=== PATIENT | male | born 1995 | race Caucasian/White ===

== ENCOUNTER 2023-04-29 14:24 | Emergency (ER) | payer BC ==
[2023-04-29] MEDS ORDERED: NA CHLORIDE 0.9% 1,000 ML ONE (15:33)
[2023-04-29 15:38] LABS: Absolute Lymphocytes (CBC) 1.3 K/uL (0.7-4.9); Hematocrit 42.4 % (39.6-49.0); Lymphocytes % 10.7 % (15.3-44.8); MCV 86.1 fL (80-100); Platelets 282 thou/uL (152-406); RBC Red Blood Cell Count 4.93 M/uL (4.33-5.43)
[2023-04-29 15:48] LABS: ALT/SGPT 55 U/L (16-61); AST/SGOT 18 U/L (15-37); Albumin 3.8 g/dL (3.4-5.0); Alkaline Phosphatase 72 U/L (45-117); BUN Blood Urea Nitrogen 13 mg/dL (7-18); Bicarbonate 25 mEq/L (21-32); Bilirubin Total 0.3 mg/dL (0.2-1.0); Glomerular Filtration Rate 76 ml/min (=/>90); Glucose Level 129 mg/dL (74-106); Potassium 3.7 mEq/L (3.5-5.1); Protein, Total 7.3 g/dL (6.4-8.2); Sodium Level 139 mEq/L (136-145); Troponin High Sensitivity 5.2 pg/mL (<58.9)
[2023-04-29 15:55] LABS: Bilirubin Direct < 0.1 mg/dL (0-0.2); Bilirubin Indirect, Calculated ND mg/dL (0.2-0.8)
--- NOTE | 2023-04-29 16:49 | RAD REPORT ---
EXAM DESCRIPTION: Naya Single View04/29/2023 2:57 pm CLINICAL HISTORY: CHEST PAIN COMPARISON: No comparisons TECHNIQUE: Portable AP view of the chest. FINDINGS: The lungs are clear. No pneumothorax or effusion. The cardiomediastinal contours are unre markable. IMPRESSION: No acute cardiopulmonary process.
--- NOTE | 2023-04-29 17:05 | ER ---
Nurse's Notes [facility] Name: Khoi Nichole Age: 28 yrs Sex: Male : 1995 Arrival Date: 04/29/2023 Time: 14:24 Bed 25 Private MD: Diagnosis: Tachycardia, unspecified Presentation: 04/29 14:25 Chief complaint: Patient states: Ate lunch at work about 10 minutes later his watch ll1 alerted he had fast HR. HR 110-150's. [place] palpitations and tingling. Chest "feels weird" but denies pain. EMS states: HR 140's upon arrival. 20 G L hand started. 250 ml NS bolus started. HR 110-120's upon arrival. Aspirin 324 MG PO given en route. Coronavirus screen: Vaccine status: Patient reports being unvaccinated. Client denies travel out of the [place] in the last 14 days. At this time, the client does not indicate any symptoms associated with coronavirus-19. Ebola Screen: Patient denies travel to an Ebola-affected area in the 21 days before illness onset. Initial Sepsis Screen: Does the patient meet any 2 criteria? HR > 90 bpm. No. Patient's initial sepsis screen is negative. Does the patient have a suspected source of infection? No. Patient's initial sepsis screen is negative. Risk Assessment: Do you want to hurt yourself or someone else? Patient reports no desire to harm self or others. Onset of symptoms was April 29, 2023. 14:25 Method Of Arrival: EMS: [facility] 14:25 Acuity: [facility] 2 ll1 Historical: - Allergies: 14:30 No Known Allergies; ll1 - PMHx: 14:30 None; ll1 - PSHx: 14:30 None; ll1 - Immunization history:: Adult Immunizations up to date. - Social history:: Smoking status: Patient denies any tobacco usage or history of. - Family history:: not pertinent. Screenin:38 [facility] ED Fall Risk Assessment (Adult) History of falling in the last 3 months, ph including since admission No falls in past 3 months (0 pts) Confusion or Disorientation No (0 pts) Intoxicated or Sedated No (0 pts) Impaired Gait No (0 pts) Mobility Assist Device Used No (0 pt) Altered Elimination No (0 pt) Score/Fall Risk Level 0 - 2 = Low Risk Oriented to surroundings, Maintained a safe environment, Provided non-skid footwear, Hourly rounding (assess needs \\T\\ fall precautionary measures) done. Abuse screen: Denies threats or abuse. Denies injuries from another. Nutritional screening: No deficits noted. Tuberculosis screening: No symptoms or risk factors identified. Assessment: 15:36 General: Appears in no apparent distress. comfortable, well groomed, Behavior is calm, ph cooperative, appropriate for age, Denies fever, feeling ill. Pain: Denies pain. Neuro: Level of Consciousness is awake, alert, obeys commands, Oriented to person, place, time, situation, Reports dizziness. Cardiovascular: Capillary refill < 3 seconds in bilateral fingers Patient's skin is warm and dry. Rhythm is sinus tachycardia. Respiratory: Airway is patent Respiratory effort is even, unlabored, Respiratory pattern is regular, symmetrical. GI: No signs and/or symptoms were reported involving the gastrointestinal system. Patient currently denies abdominal pain, diarrhea, nausea, vomiting. : No signs and/or symptoms were reported regarding the genitourinary system. Derm: Skin is pink, warm \\T\\ dry. Musculoskeletal: Circulation, motion, and sensation intact. Range of motion: intact in all extremities. Vital Signs: 14:25 BP 121 / 67; Pulse 129; Resp 18; Temp 98.6; Pulse Ox 96% on R/A; Weight 117.93 kg; ll1 Height 6 ft. 3 in. ; Pain 0/10; 15:38 BP 165 / 96; Pulse 109; Resp 18; Pulse Ox 95% on R/A; ph 17:23 BP 145 / 84; Pulse 100; Resp 18; Temp 97.2; Pulse Ox 100% on R/A; ph 14:25 Body Mass Index 32.50 (117.93 kg, 190.5 cm) ll1 14:25 Pain Scale: Adult ll1 Vitals: 15:38 Cardiac Rhythm Assessment Sinus tach. ph ED Course: 14:25 Patient arrived in ED. ll1 14:25 Abbe Mosquera MD is Attending Physician. ec2 14:30 Triage completed. ll1 14:30 Arm band placed on Patient placed in an exam room, on a stretcher. ll1 14:48 Verona Lal RN is Primary Nurse. ph 14:58 XRAY Chest (1 view) In Process Unspecified. EDMS 15:37 No provider procedures requiring assistance completed. Maintain EMS IV. Dressing ph intact. Good blood return noted. Site clean \\T\\ dry. Gauge \\T\\ site: 20G L hand. 15:38 Patient has correct armband on for positive identification. Bed in low position. Call ph light in reach. Side rails up X2. Client placed on continuous cardiac and pulse oximetry monitoring. NIBP monitoring applied. Door closed. Noise minimized. 15:43 Basic Metabolic Panel Sent. ph 15:43 LFT's Sent. ph 15:44 Magnesium Sent. ph 15:44 Troponin HS Sent. ph 15:44 TSH Sent. ph 17:24 IV discontinued, intact, bleeding controlled, No redness/swelling at site. Pressure ph dressing applied. Administered Medications: 15:41 Drug: NS 0.9% IV 1000 ml IV at 1 bolus Per protocol; 1000 mL bolus Route: IV; Rate: 1 ph bolus; Site: left hand; 17:24 Follow up: Response: No adverse reaction; IV Status: Completed infusion; IV Intake: ph 1000ml Medication: 15:38 VIS not applicable for this client. ph Intake: 17:24 IV: 1000ml; Total: 1000ml. ph Outcome: 17:05 Discharge ordered by . rt 17:24 Discharged to home ambulatory, with significant other, ph 17:24 Condition: good 17:24 Discharge instructions given to patient, Instructed on discharge instructions, follow up and referral plans. Demonstrated understanding of instructions, follow-up care, 17:30 Patient left the ED. ph Signatures: Dispatcher [employer] Verona Sharif RN RN ph Rodrigo Ibrahim RN RN ll1 Abbe Mosquera MD MD rt Gregorio Kwon MD MD ec2
--- NOTE | 2023-04-29 17:06 | EDPHYS ---
Physician Documentation [facility] Name: Khoi Nichole Age: 28 yrs Sex: Male : 1995 Arrival Date: 04/29/2023 Time: 14:24 Bed 25 Private MD: ED Physician Abbe Mosquera HPI: 04/29 16:00 This 28 yrs old Male presents to ER via EMS with complaints of Palpitations. rt 16:00 Patient presents to the ED with reports of a fast heartbeat. Patient states that his rt watch notified him that his heart rate was in the 150s. He states that he felt palpitations, somewhat dizzy at that time. Denies other acute complaints at this time, symptoms are moderate severity, no other aggravating or alleviating factors.. Historical: - Allergies: 14:30 No Known Allergies; ll1 - PMHx: 14:30 None; ll1 - PSHx: 14:30 None; ll1 - Immunization history:: Adult Immunizations up to date. - Social history:: Smoking status: Patient denies any tobacco usage or history of. - Family history:: not pertinent. ROS: 16:00 Constitutional: Negative for fever, chills, and weight loss, Respiratory: Negative for rt shortness of breath, cough, wheezing, and pleuritic chest pain, Abdomen/GI: Negative for abdominal pain, nausea, vomiting, diarrhea, and constipation, MS/Extremity: Negative for injury and deformity, Skin: Negative for injury, rash, and discoloration, Psych: Negative for depression, anxiety, suicide ideation, homicidal ideation, and hallucinations, 16:00 Cardiovascular: Positive for palpitations, Negative for chest pain, 16:00 Neuro: Positive for near syncope, Negative for syncope, Exam: 16:00 ECG was reviewed by the Attending Physician. rt Vital Signs: 14:25 BP 121 / 67; Pulse 129; Resp 18; Temp 98.6; Pulse Ox 96% on R/A; Weight 117.93 kg; ll1 Height 6 ft. 3 in. ; Pain 0/10; 15:38 BP 165 / 96; Pulse 109; Resp 18; Pulse Ox 95% on R/A; ph 17:23 BP 145 / 84; Pulse 100; Resp 18; Temp 97.2; Pulse Ox 100% on R/A; ph 14:25 Body Mass Index 32.50 (117.93 kg, 190.5 cm) ll1 14:25 Pain Scale: Adult ll1 MDM: 14:30 Patient medically screened. rt 17:47 Differential diagnosis: Dysrhythmia, dehydration, sinus tachycardia. Data reviewed: rt vital signs, nurses notes, lab test result(s), EKG, radiologic studies. Consideration of Admission/Observation Escalation of care including admission/observation considered. I considered the following discharge prescriptions or medication management in the emergency department Medications were administered in the Emergency Department. See MAR. Independent interpretation of the following test(s) in the Emergency Department X-Ray: My interpretation is No consolidation seen on interpretation of x-ray images. Test considered but Not performed: CT: D-dimer negative, low suspicion for pulmonary embolism, CT scan not indicated. Counseling: I had a detailed discussion with the patient and/or guardian regarding the historical points, exam findings, and any diagnostic results supporting the discharge/admit diagnosis, lab results, radiology results, the need for outpatient follow up, to return to the emergency department if symptoms worsen or persist or if there are any questions or concerns that arise at home. Response to treatment: the patient's symptoms have resolved after treatment. 04/29 14:31 Order name: Basic Metabolic Panel; Complete Time: 15:58 rt 04/29 14:31 Order name: CBC with Diff; Complete Time: 15:58 rt 04/29 14:31 Order name: D-Dimer; Complete Time: 15:58 rt 04/29 14:31 Order name: LFT's; Complete Time: 15:58 rt 04/29 14:31 Order name: Magnesium; Complete Time: 15:58 rt 04/29 14:31 Order name: Troponin HS; Complete Time: 15:58 rt 04/29 14:31 Order name: TSH; Complete Time: 15:58 rt 04/29 14:31 Order name: XRAY Chest (1 view); Complete Time: 16:57 rt 04/29 14:31 Order name: EKG; Complete Time: 14:32 rt 04/29 14:31 Order name: Cardiac monitoring; Complete Time: 14:48 rt 04/29 14:31 Order name: EKG - Nurse/Tech; Complete Time: 14:48 rt 04/29 14:31 Order name: IV Saline Lock; Complete Time: 15:43 rt 04/29 14:31 Order name: Labs collected and sent; Complete Time: 15:43 rt 04/29 14:31 Order name: O2 Per Protocol; Complete Time: 14:48 rt 04/29 14:31 Order name: O2 Sat Monitoring; Complete Time: 14:48 rt EC:00 Rate is 111 beats/min. Rhythm is regular, Sinus tachycardia with No ectopy. QRS [place] is rt Normal. [place] interval is normal. QRS interval is normal. QT interval is normal. No Q waves. T waves are Normal. No ST changes noted. Interpreted by me. Administered Medications: 15:41 Drug: NS 0.9% IV 1000 ml IV at 1 bolus Per protocol; 1000 mL bolus Route: IV; Rate: 1 ph bolus; Site: left hand; 17:24 Follow up: Response: No adverse reaction; IV Status: Completed infusion; IV Intake: ph 1000ml Disposition Summary: 04/29/23 17:05 Discharge Ordered Notes: Location: Home rt Problem: new rt Symptoms: are resolved rt Condition: Stable rt Diagnosis - Tachycardia, unspecified rt Followup: rt - With: Private Physician - When: 2 - 3 days - Reason: Discharge Instructions: - Discharge Summary Sheet ph - Postural Orthostatic Tachycardia Syndrome rt - Sinus Tachycardia rt Forms: - Work release form ph - Medication Reconciliation Form rt - Thank You Letter rt - Antibiotic Education rt - Prescription Opioid Use rt - Patient Portal Instructions rt - Leadership Thank You Letter rt Signatures: Dispatcher [employer] Verona Sharif RN RN ph Lewis, Lynsay, RN RN ll1 Abbe Mosquera MD MD rt
[2023-04-29 18:20] VITALS: BP 145/84; TEMP 97.2; O2SAT 100
--- NOTE | 2023-04-30 09:48 | EKG ---
Test Date: 2023-04-29 Test Time: 14:44:14 Traffic Control Technician: BRENDA MEASUREMENT RESULTS: Intervals: Rate: 111 FL: 160 QRSD: 100 QT: 316 QTc: 429 [place]: P: 71 FL: 160 QRS: 64 T: 61 INTERPRETIVE STATEMENTS: Sinus tachycardia Nonspecific T wave abnormality Abnormal ECG No previous ECG available for comparison Electronically Signed On 04-30-23 09:45:54 CDT by Peng Parker
== END 2023-04-29 17:30 | disposition home or self-care (01) ==
LOC: ER 14:24
DX: R00.0 Tachycardia, unspecified (principal)
CPT/HCPCS: 96361; 93005; 85025; 80048; 36415; 83735; 85379; 80076; 84443; 84484; 71045; 96360; 99284; J7030